=== PATIENT | female | born 1950 | race Two or more races ===

== ENCOUNTER 2025-06-09 07:08 | Outpatient (CLI) | payer OTHER, MEDICAID ==
--- NOTE | 2025-06-09 12:44 | DVH ---
Procedure: [facility] BONE 3 PHASE Exam Date: 06/09/2025 07:55 AM Clinical History: KNEE REPLACEMENT Comparison Study: None Nuclear Medicine Three-Phase Bone Scan Technique: Following the intravenous administration of 27.5 millicuries of technetium 99m MDP dynamic blood flow images and static and blood pool images were obtained. Delayed planar images were obtained at [address]. Findings: Angiographic and tissue phase images demonstrate no significant asymmetric hyperemia. Delayed skeletal phase spot views of both knees demonstrates moderate diffuse symmetric periprostheti c uptake surrounding the right total knee arthroplasty and more mild fairly symmetric uptake surround ing the left total knee arthroplasty. Impression: No scintigraphic evidence for loosening at this time. If there remains ongoing concern suggest a foll ow-up bone scan in 3-6 months for reassessment.
== END 2025-06-09 17:00 | disposition home or self-care (01) ==
LOC: XYW 07:08
PROVIDERS: ATTEND Orthopaedic Surgery Adult Reconstructive Orthopaedic Surgery
DX: Z96.653 Presence of artificial knee joint, bilateral (principal)
CPT/HCPCS: 78315; A9503